=== PATIENT | male | born 1930 | race Two or more races ===

== ENCOUNTER 2018-04-03 13:59 | Inpatient (IN) | payer MEDICARE ==
[2018-04-03 14:30] LABS: ADD MAN DIFF? NO
[2018-04-03] MEDS: NALOXONE (0.4 MG/ML) INJ IV (14:30)
[2018-04-03 14:34] LABS: WHITE BLOOD COUNT 8.7 10^3/ul (4.8-10.8)
[2018-04-03 14:34] LABS: BASOPHILS % 0.2 % (0.0-2.0); HEMATOCRIT 39.3 % (42.0-52.0); HEMOGLOBIN 12.8 g/dl (14.0-18.0); LYMPHOCYTES # 2.8 10^3/ul (0.8-2.9); LYMPHOCYTES % 32.6 % (15.0-51.0); MEAN CORPUSCULAR HEMOGLOBIN 32.5 pg (29.0-33.0); MEAN CORPUSCULAR HGB CONC 32.6 g/dl (32.0-37.0); MEAN CORPUSCULAR VOLUME 99.7 fl (82.0-101.0); MEAN PLATELET VOLUME 9.2 fl (7.4-10.4); MONOCYTE # 0.5 10^3/ul (0.3-0.9); NEUTROPHIL # 5.3 10^3/ul (1.6-7.5); NEUTROPHILS % 60.7 % (39.0-77.0); PLATELET COUNT 161 10^3/UL (140-415); RED BLOOD COUNT 3.94 10^6/ul (4.70-6.10); RED CELL DISTRIBUTION WIDTH 12.7 % (11.5-14.5)
[2018-04-03] MEDS: SOD CHLORIDE 0.9% 500 ML IV (14:40)
[2018-04-03] MEDS: CEFEPIME 2GM/50 ML (PMX) 50 ML IVPB (14:41)
[2018-04-03] MEDS: SODIUM CHLORIDE 0.9% 1L BAG IV* (14:41)
[2018-04-03] MEDS: NORepinephrine 8MG/250 ML (PMX 250 ML IV (14:42)
[2018-04-03 14:51] LABS: ALANINE AMINOTRANSFERASE 12 IU/L (13-69); ALBUMIN 3.6 g/dl (3.3-4.9); ALBUMIN/GLOBULIN RATIO 1.02; ALKALINE PHOSPHATASE 77 IU/L (42-121); ANION GAP 9 (5-13); ASPARTATE AMINO TRANSFERASE 25 IU/L (15-46); BILIRUBIN,INDIRECT 0.4 mg/dl (0-1.1); BILIRUBIN,TOTAL 0.4 mg/dl (0.2-1.3); BLOOD UREA NITROGEN 43 mg/dl (7-20); CALCIUM 9.4 mg/dl (8.4-10.2); CARBON DIOXIDE 26 mmol/L (21-31); CHLORIDE 107 mmol/L (97-110); CREATININE 1.14 mg/dl (0.61-1.24); GLUCOSE 166 mg/dl (70-220); POTASSIUM 3.7 mmol/L (3.5-5.1); SODIUM 142 mmol/L (135-144); TOTAL PROTEIN 7.1 g/dl (6.1-8.1)
[2018-04-03 14:53] LABS: ACETAMINOPHEN < 10.0 ug/ml (10.0-30.0)
[2018-04-03 14:54] LABS: ETHANOL < 10.0 mg/dl (0-0); SALICYLATE < 1.0 mg/dl (5.0-30.0)
[2018-04-03 15:01] LABS: TROPONIN-I 0.012 ng/ml (0.000-0.120)
[2018-04-03] MEDS ORDERED: FENTAnyl 50 MCG/ML VIAL (15:05)
[2018-04-03] MEDS ORDERED: LIDOCAINE 1% (MDV) 20 ML INJ (15:05)
[2018-04-03 15:08] LABS: INR 2.22; PROTIME 24.7 Sec (11.9-14.9); PT RATIO 1.9
[2018-04-03] MEDS: FENTAnyl 50 MCG/ML VIAL IV (15:12)
[2018-04-03] MEDS: VANCOMYCIN 1 GM (PMX) 250 ML IVPB (15:48)
[2018-04-03] MEDS ORDERED: ACETAMINOPHEN 650 MG SUPP PR (16:00)
[2018-04-03] MEDS ORDERED: ACETAMINOPHEN 325 MG TAB PO (16:00)
[2018-04-03] MEDS ORDERED: ONDANSETRON 4 MG INJ IV (16:00)
[2018-04-03] MEDS ORDERED: NACL 0.9% 3 ML SYG IV (16:00)
[2018-04-03] MEDS ORDERED: VANCOMYCIN IV PER PHARMACY XX (16:30)
[2018-04-03 16:45] LABS: ADD UMIC YES; UR ASCORBIC ACID NEGATIVE (NEGATIVE); UR BILIRUBIN (Dip) NEGATIVE (NEGATIVE); UR BLOOD (Dip) 1+ mg/dL (NEGATIVE); UR CLARITY CLEAR (CLEAR); UR COLOR YELLOW (YELLOW); UR GLUCOSE (Dip) NEGATIVE (NEGATIVE); UR KETONES (Dip) NEGATIVE (NEGATIVE); UR LEUKOCYTE ESTERASE (Dip) NEGATIVE Leu/ul (NEGATIVE); UR NITRITE (Dip) NEGATIVE (NEGATIVE); UR RBC 1 /HPF (0-5); UR TOTAL PROTEIN (Dip) NEGATIVE (NEGATIVE); UR UROBILINOGEN (Dip) 2+ mg/dL (NEGATIVE); UR WBC 3 /HPF (0-5)
[2018-04-03 17:18] LABS: AMPHETAMINE/METHAMPHETAMINE Negative (NEGATIVE); BARBITURATES Negative (NEGATIVE); BENZODIAZEPINES Negative (NEGATIVE); CANNABINOIDS Negative (NEGATIVE); COCAINE Negative (NEGATIVE); OPIATES Negative (NEGATIVE)
[2018-04-03] MEDS: SOD CHLORIDE 0.9% 1,000 ML IV (18:21)
[2018-04-03 19:37] LABS: LACTIC ACID 1.2 mmol/L (0.5-2.0)
[2018-04-03 19:47] LABS: AMMONIA < 9 umol/l (9-30)
[2018-04-03] MEDS ORDERED: CEFEPIME 1GM/50 ML (PMX) 50 ML IVPB (21:00)
[2018-04-04] MEDS: CALAMINE/PRAMOXINE LOT 180 ML BTL TOP ×3 (02:36→22:18)
[2018-04-04] MEDS: SOD CHLORIDE 0.9% 1,000 ML IV (02:44)
[2018-04-04 05:28] LABS: ADD MAN DIFF? NO; BASOPHILS % 0.1 % (0.0-2.0); HEMATOCRIT 34.2 % (42.0-52.0); HEMOGLOBIN 11.1 g/dl (14.0-18.0); LYMPHOCYTES # 1.1 10^3/ul (0.8-2.9); LYMPHOCYTES % 9.1 % (15.0-51.0); MEAN CORPUSCULAR HEMOGLOBIN 32.2 pg (29.0-33.0); MEAN CORPUSCULAR HGB CONC 32.5 g/dl (32.0-37.0); MEAN CORPUSCULAR VOLUME 99.1 fl (82.0-101.0); MEAN PLATELET VOLUME 9.7 fl (7.4-10.4); MONOCYTE # 0.6 10^3/ul (0.3-0.9); MONOCYTES % 4.9 % (0.0-11.0); NEUTROPHIL # 10.2 10^3/ul (1.6-7.5); NEUTROPHILS % 85.5 % (39.0-77.0); PLATELET COUNT 136 10^3/UL (140-415); RED BLOOD COUNT 3.45 10^6/ul (4.70-6.10); RED CELL DISTRIBUTION WIDTH 13.1 % (11.5-14.5)
[2018-04-04 05:47] LABS: HEMOGLOBIN A1C 5.9 % (0-5.9)
[2018-04-04] MEDS: PANTOPRAZOLE 40 MG INJ IV (05:55)
[2018-04-04 06:00] LABS: ALANINE AMINOTRANSFERASE 17 IU/L (13-69); ALBUMIN 3.1 g/dl (3.3-4.9); ALKALINE PHOSPHATASE 69 IU/L (42-121); ANION GAP 8 (5-13); ASPARTATE AMINO TRANSFERASE 23 IU/L (15-46); BILIRUBIN,INDIRECT 0.4 mg/dl (0-1.1); BILIRUBIN,TOTAL 0.4 mg/dl (0.2-1.3); BLOOD UREA NITROGEN 34 mg/dl (7-20); CALCIUM 8.4 mg/dl (8.4-10.2); CARBON DIOXIDE 26 mmol/L (21-31); CHLORIDE 112 mmol/L (97-110); CHOLESTEROL 139 mg/dl (100-200); CREATININE 0.78 mg/dl (0.61-1.24); GLUCOSE 107 mg/dl (70-220); HDL CHOLESTEROL 34 mg/dl (31-75); LDL CHOLESTEROL,CALCULATED 88 mg/dl; POTASSIUM 3.8 mmol/L (3.5-5.1); SODIUM 146 mmol/L (135-144); TOTAL PROTEIN 6.2 g/dl (6.1-8.1); TRIGLYCERIDES 87 mg/dl (0-149)
[2018-04-04 06:29] LABS: THYROID STIMULATING HORMONE 0.888 MIU/L (0.465-4.680)
[2018-04-04] MEDS: SOD CHLORIDE 0.45% 1,000 ML IV ×2 (09:21→22:17)
[2018-04-04] MEDS: CEFEPIME 1GM/50 ML (PMX) 50 ML IVPB (09:21)
[2018-04-04] MEDS: VALACYCLOVIR 500 MG TAB PO (12:58)
[2018-04-04] MEDS: HYDROCORTISONE 0.5% 28.35 GM CR TOP ×2 (12:58→21:00)
[2018-04-04] MEDS: DIPHENHYDRAMINE 25 MG CAP PO (17:20)
[2018-04-04] MEDS: VANCOMYCIN 500 MG (PMX) 100 ML IVPB (17:20)
[2018-04-04] MEDS ORDERED: LORAZEPAM 2 MG INJ IV (20:00)
[2018-04-04] MEDS ORDERED: LORAZEPAM 4 MG/ML VIAL (20:01)
[2018-04-04] MEDS: LORAZEPAM 4 MG/ML VIAL IV (20:13)
[2018-04-04] MEDS: DIPHENHYDRAMINE 50 MG INJ IV (22:08)
[2018-04-04] MEDS: HYDROmorphONE 1 MG/ML SYG IV (22:08)
[2018-04-05] MEDS: DIPHENHYDRAMINE 25 MG CAP PO (03:00)
[2018-04-05] MEDS: DIPHENHYDRAMINE 50 MG INJ IV (04:07)
[2018-04-05] MEDS: PANTOPRAZOLE 40 MG INJ IV (05:34)
[2018-04-05 05:59] LABS: ADD MAN DIFF? NO
[2018-04-05 06:01] LABS: WHITE BLOOD COUNT 7.8 10^3/ul (4.8-10.8)
[2018-04-05 06:01] LABS: BASOPHILS % 0.1 % (0.0-2.0); EOSINOPHILS % 0.1 % (0.0-7.0); HEMOGLOBIN 10.5 g/dl (14.0-18.0); LYMPHOCYTES # 1.4 10^3/ul (0.8-2.9); LYMPHOCYTES % 18.3 % (15.0-51.0); MEAN CORPUSCULAR HEMOGLOBIN 32.6 pg (29.0-33.0); MEAN CORPUSCULAR HGB CONC 32.8 g/dl (32.0-37.0); MEAN CORPUSCULAR VOLUME 99.4 fl (82.0-101.0); MEAN PLATELET VOLUME 9.3 fl (7.4-10.4); MONOCYTE # 0.6 10^3/ul (0.3-0.9); NEUTROPHIL # 5.7 10^3/ul (1.6-7.5); NEUTROPHILS % 73.2 % (39.0-77.0); PLATELET COUNT 114 10^3/UL (140-415); RED BLOOD COUNT 3.22 10^6/ul (4.70-6.10); RED CELL DISTRIBUTION WIDTH 12.7 % (11.5-14.5)
[2018-04-05 06:48] LABS: ANION GAP 7 (5-13); BLOOD UREA NITROGEN 26 mg/dl (7-20); CALCIUM 8.3 mg/dl (8.4-10.2); CARBON DIOXIDE 27 mmol/L (21-31); CHLORIDE 109 mmol/L (97-110); CREATININE 0.73 mg/dl (0.61-1.24); GLUCOSE 78 mg/dl (70-220); PHOSPHORUS 2.4 mg/dl (2.5-4.9); POTASSIUM 3.5 mmol/L (3.5-5.1); SODIUM 143 mmol/L (135-144)
[2018-04-05] MEDS: SOD CHLORIDE 0.9% 500 ML IV (06:48)
[2018-04-05] MEDS: HYDROCORTISONE 0.5% 28.35 GM CR TOP ×2 (09:26→21:53)
[2018-04-05] MEDS: CEFEPIME 1GM/50 ML (PMX) 50 ML IVPB (09:27)
[2018-04-05] MEDS: SOD CHLORIDE 0.45% 1,000 ML IV (13:10)
[2018-04-05] MEDS ORDERED: hydrOXYzine HCL 10 MG TAB PO (15:00)
[2018-04-05] MEDS: NS + KCL 20 MEQ 1,000 ML IV (15:32)
[2018-04-05] MEDS: METOPROLOL 25 MG TAB PO (15:33)
[2018-04-05] MEDS: VALACYCLOVIR 500 MG TAB PO (15:34)
[2018-04-05] MEDS: SERTRALINE 50 MG TAB PO (15:34)
[2018-04-05] MEDS: ENOXAPARIN 30 MG/0.3 ML SYG SC (15:57)
[2018-04-05] MEDS ORDERED: VANCOMYCIN 750 MG (PMX) 250 ML IVPB (16:00)
[2018-04-05] MEDS: DONEPEZIL 5 MG TAB PO (18:01)
[2018-04-05] MEDS: BRIMONIDINE 0.1% 5 ML OPH BOTH EYES (18:01)
[2018-04-05] MEDS: LATANOPROST 0.005% 2.5 ML OPH BOTH EYES (21:53)
[2018-04-05] MEDS: TAMSULOSIN (SR) 0.4 MG CAP PO (21:53)
[2018-04-06] MEDS: NS + KCL 20 MEQ 1,000 ML IV ×3 (01:28→21:16)
[2018-04-06] MEDS: BRIMONIDINE 0.1% 5 ML OPH BOTH EYES ×3 (01:28→21:16)
[2018-04-06] MEDS: PANTOPRAZOLE 40 MG INJ IV (06:46)
[2018-04-06 07:44] LABS: ADD MAN DIFF? NO
[2018-04-06 07:53] LABS: WHITE BLOOD COUNT 7.1 10^3/ul (4.8-10.8)
[2018-04-06 07:53] LABS: BASOPHILS % 0.1 % (0.0-2.0); HEMATOCRIT 35.1 % (42.0-52.0); HEMOGLOBIN 11.6 g/dl (14.0-18.0); LYMPHOCYTES # 1.4 10^3/ul (0.8-2.9); LYMPHOCYTES % 19.3 % (15.0-51.0); MEAN PLATELET VOLUME 9.6 fl (7.4-10.4); MONOCYTE # 0.5 10^3/ul (0.3-0.9); MONOCYTES % 6.3 % (0.0-11.0); NEUTROPHIL # 5.3 10^3/ul (1.6-7.5); PLATELET COUNT 125 10^3/UL (140-415); RED BLOOD COUNT 3.62 10^6/ul (4.70-6.10); RED CELL DISTRIBUTION WIDTH 12.2 % (11.5-14.5)
[2018-04-06 08:14] LABS: ANION GAP 6 (5-13); BLOOD UREA NITROGEN 13 mg/dl (7-20); CALCIUM 8.2 mg/dl (8.4-10.2); CARBON DIOXIDE 27 mmol/L (21-31); CHLORIDE 105 mmol/L (97-110); CREATININE 0.56 mg/dl (0.61-1.24); GLUCOSE 88 mg/dl (70-220); POTASSIUM 3.7 mmol/L (3.5-5.1); SODIUM 138 mmol/L (135-144)
[2018-04-06] MEDS: SERTRALINE 50 MG TAB PO (09:03)
[2018-04-06] MEDS: DONEPEZIL 5 MG TAB PO (09:03)
[2018-04-06] MEDS: HYDROCORTISONE 0.5% 28.35 GM CR TOP ×2 (09:04→21:16)
[2018-04-06] MEDS: ENOXAPARIN 30 MG/0.3 ML SYG SC (09:09)
[2018-04-06] MEDS: TAMSULOSIN (SR) 0.4 MG CAP PO (21:15)
[2018-04-06] MEDS: LATANOPROST 0.005% 2.5 ML OPH BOTH EYES (21:16)
[2018-04-06] MEDS: METOPROLOL 25 MG TAB PO (21:16)
[2018-04-07] MEDS: PANTOPRAZOLE 40 MG INJ IV (06:08)
[2018-04-07] MEDS: NS + KCL 20 MEQ 1,000 ML IV ×3 (06:08→17:00)
[2018-04-07] MEDS: BRIMONIDINE 0.1% 5 ML OPH BOTH EYES ×2 (08:44→20:52)
[2018-04-07] MEDS: HYDROCORTISONE 0.5% 28.35 GM CR TOP ×2 (08:45→20:52)
[2018-04-07] MEDS: SERTRALINE 50 MG TAB PO (08:45)
[2018-04-07] MEDS: DONEPEZIL 5 MG TAB PO (08:45)
[2018-04-07] MEDS: METOPROLOL 25 MG TAB PO ×2 (08:46→20:51)
[2018-04-07] MEDS: ENOXAPARIN 30 MG/0.3 ML SYG SC (09:00)
[2018-04-07] MEDS: LOSARTAN 25 MG TAB PO (11:29)
[2018-04-07] MEDS: TAMSULOSIN (SR) 0.4 MG CAP PO (20:51)
[2018-04-07] MEDS: LATANOPROST 0.005% 2.5 ML OPH BOTH EYES (20:52)
[2018-04-08] MEDS: NS + KCL 20 MEQ 1,000 ML IV (03:00)
[2018-04-08] MEDS: PANTOPRAZOLE 40 MG INJ IV (05:21)
[2018-04-08] MEDS: LOSARTAN 25 MG TAB PO ×2 (08:30→12:51)
[2018-04-08] MEDS: DONEPEZIL 5 MG TAB PO (08:31)
[2018-04-08] MEDS: SERTRALINE 50 MG TAB PO (08:31)
[2018-04-08] MEDS: METOPROLOL (XL) 25 MG TAB PO (08:31)
[2018-04-08] MEDS: BRIMONIDINE 0.1% 5 ML OPH BOTH EYES (08:31)
[2018-04-08] MEDS: HYDROCORTISONE 0.5% 28.35 GM CR TOP (08:32)
[2018-04-08] MEDS: ENOXAPARIN 30 MG/0.3 ML SYG SC (08:37)
[2018-04-09] MEDS ORDERED: LOSARTAN 50 MG TAB PO (09:00)
== END 2018-04-08 19:10 | DRG 314 ==
LOC: TEL 04-05 07:09 → E/R 13:59 → TEL 04-04 21:50 → ICU 15:40
PROC: 02HV33Z Insertion of Infusion Device into Superior Vena Cava, Percutaneous Approach (ICD-10-PCS; principal; 2018-04-03)
DX: I95.89 Other hypotension (principal); E43 Unspecified severe protein-calorie malnutrition; G92 Toxic encephalopathy; Z68.1 Body mass index [BMI] 19.9 or less, adult; I47.1 Supraventricular tachycardia; E86.0 Dehydration; I48.0 Paroxysmal atrial fibrillation; Z79.01 Long term (current) use of anticoagulants; I95.9 Hypotension, unspecified; F03.90 Unspecified dementia, unspecified severity, without behavioral disturbance, psychotic disturbance, mood disturbance, and anxiety; K21.9 Gastro-esophageal reflux disease without esophagitis; F39 Unspecified mood [affective] disorder; N40.0 Benign prostatic hyperplasia without lower urinary tract symptoms; B02.9 Zoster without complications; Z79.02 Long term (current) use of antithrombotics/antiplatelets; H40.9 Unspecified glaucoma
CPT/HCPCS: 36415; 70450; 70551; 71045; 73562-50; 76937; 80048; 80053; 80061; 80307; 81001; 82140; 83036; 83605; 83735; 84100; 84443; 84484; 85025; 85610; 87040; 87081; 87400; 93005; 93306; 93880; 96374; 96375; 97116; 97162; 97166; 97530; 97535; 99291-25